=== PATIENT | male | born 1995 | race Asian ===

== ENCOUNTER → 2025-03-17 | Outpatient (CLI) | payer BC ==
[2025-03-17 09:34] LABS: BASOPHILS % 0.5 % (0.0-2.0); EOSINOPHILS % 0.6 % (0.0-5.0); HEMATOCRIT. 46.1 % (42.0-52.0); HEMOGLOBIN. 15.2 g/dL (14.0-18.0); LYMPHOCYTES % 30.0 % (20.0-50.0); MEAN PLATELET VOLUME 8.3 fl (7.4-10.4); MONOCYTES % 6.5 % (2.0-8.0); NEUTROPHILS % 62.4 % (40.0-76.0); PLATELET 190 x1000/uL (130-400); RED BLOOD CELL COUNT 5.01 mill/uL (4.7-6.1); RED CELL DISTRIBUTION WIDTH 13.6 % (11.6-14.6)
[2025-03-17 09:53] LABS: CREATININE 1.3 mg/dL (0.6-1.3)
[2025-03-17 09:54] LABS: LDL CHOLESTEROL 146 mg/dL (5-100); TRIGLYCERIDE 72 mg/dL (0-150); UREA NITROGEN BLOOD 13 mg/dL (9-23)
[2025-03-17 09:55] LABS: ASPARTATE AMINOTRANSFERASE 29 IU/L (<34)
[2025-03-17 09:56] LABS: BILIRUBIN TOTAL 1.0 mg/dL (0.1-1.0); FOLIC ACID (FOLATE) SERUM > 20.00 ng/mL (>5.38)
[2025-03-17 09:57] LABS: T4 FREE 1.78 ng/dL (0.89-1.76)
[2025-03-17 10:08] LABS: CLARITY URINE CLEAR (CLEAR); COLOR URINE YELLOW (YELLOW); GLUCOSE URINE NEGATIVE (NEGATIVE); KETONES URINE NEGATIVE (NEGATIVE); LEUKOCYTE ESTERASE URINE NEGATIVE (NEGATIVE); NITRITE URINE NEGATIVE (NEGATIVE); OCCULT BLOOD URINE NEGATIVE (NEGATIVE); PH URINE 7.0 (4.5-8.0); PROTEIN URINE NEGATIVE (NEGATIVE); SPECIFIC GRAVITY URINE 1.011 (1.005-1.030); UROBILINOGEN URINE 0.2 E.U./dL (0.2-1.0)
[2025-03-17 10:15] LABS: ERYTHROCYTE SEDIMENTATION RATE 1 mm/hr (0-15)
[2025-03-17 10:33] LABS: VITAMIN B12 SERUM > 2000 pg/mL (211-911)
[2025-03-17 12:01] LABS: PROTEIN TOTAL 6.9 g/dL (6.0-8.3)
== END | disposition home or self-care (01) ==
LOC: LAB 08:13
PROVIDERS: ATTEND Specialist
DX: I10 Essential (primary) hypertension (principal); E78.5 Hyperlipidemia, unspecified
CPT/HCPCS: 36415; 80053; 80061; 81003; 82306; 82607; 82728; 82746; 83036; 83540; 83550; 84439; 84443; 84481; 85025; 85651

== ENCOUNTER → 2025-04-20 | Outpatient (CLI) | payer BC | END | disposition home or self-care (01) | LOC: EDBD 07:52 → LAB 07:52 | PROVIDERS: ATTEND Specialist | DX: D50.9 Iron deficiency anemia, unspecified (principal) | CPT/HCPCS: 36415; 83540; 83550 ==